=== PATIENT | male | born 1975 | race American Indian/Alaskan Native ===

== ENCOUNTER 2021-03-10 14:51 | Emergency (ER) | payer SELFPAY ==
[2021-03-10 16:41] VITALS: BP 111/84
--- NOTE | 2021-03-10 16:53 | Event Note ---
ED Screening Note Date of service: 03/10/21 Time: 16:52 ED Screening Note: 45-year-old male presents to the ER today with complaints of palpitations. Patient states that since Monday he has been feeling like his heart has been beating fast. Patient states that it occurs intermittently mainly when he exerts himself but when he is resting it improves. He also reports associated generalized weakness. He denies shortness of breath, chest pain, nausea, vomiting, cough, calf pain or lower extremity swelling. Patient states that he has had similar symptoms in the past when he was living in [place]. He states that he got evaluated at the time and he was told that it was likely related to stress/anxiety. He states that he came from [place] 2 months ago. He used to live in [place]. He denies any illicit drug use, alcohol abuse, history of heart disease or any other significant past medical history. This initial assessment/diagnostic orders/clinical plan/treatment(s) is/are subject to change based on patients health status, clinical progression and re- assessment by fellow clinical providers in the ED. Further treatment and workup at subsequent clinical providers discretion. Patient/guardian urged not to elope from the ED as their condition may be serious if not clinically assessed and managed. Initial orders include: Chest pain order set.
--- NOTE | 2021-03-10 17:31 | XRay Report ---
CHEST 1 VIEW 03/10/2021 4:22 PM INDICATION / CLINICAL INFORMATION: Dysrhythmia. Palpitations. COMPARISON: None available. FINDINGS: SUPPORT DEVICES: None. HEART / MEDIASTINUM: The heart size and pulmonary vasculature are normal. The aorta is normal in [place]. LUNGS / PLEURA: No significant pulmonary or pleural abnormality. No pneumothorax. ADDITIONAL FINDINGS: No significant additional findings. IMPRESSION: No acute findings. Signer Name: Anirudh Resendiz MD Signed: 03/10/2021 5:27 PM Workstation Name: [id number]
[2021-03-10 17:35] LABS: Basophils % (Auto) 0.7 % (0.0-1.8); Eosinophils # (Auto) 0.1 K/mm3 (0.0-0.4); Eosinophils % (Auto) 2.2 % (0.0-4.3); Hematocrit 45.3 % (35.5-45.6); Hemoglobin 15.1 gm/dl (11.8-15.2); Lymphocytes # (Auto) 2.6 K/mm3 (1.2-5.4); Mean Corpuscular HGB Conc 33 % (32-34); Mean Corpuscular Volume 86 fl (84-94); Monocytes # (Auto) 0.5 K/mm3 (0.0-0.8); Platelet Count 249 K/mm3 (140-440); Red Cell Distribution Width 12.6 % (13.2-15.2)
[2021-03-10 17:38] LABS: Alanine Aminotransferase 18 units/L (7-56); Albumin 4.9 g/dL (3.9-5); BUN/Creatinine Ratio 10; Blood Urea Nitrogen 9 mg/dL (9-20); Calcium 10.1 mg/dL (8.4-10.2); Hemolysis Index 17
--- NOTE | 2021-03-10 21:23 | Emergency Department Report ---
ED Medical Clearance HPI - General Chief complaint: Arrhythmia/Palpitations Stated complaint: GEN WEAKNESS Source: patient Mode of arrival: Ambulatory - History of Present Illness Initial comments: 45-year-old male presents to the ER today with complaints of palpitations. Patient states that since Monday he has been feeling like his heart has been beating fast. Patient states that it occurs intermittently mainly when he exerts himself but when he is resting it improves. He also reports associated generalized weakness. He denies shortness of breath, chest pain, nausea, vomiting, cough, calf pain or lower extremity swelling. Patient states that he has had similar symptoms in the past when he was living in [place]. He states that he got evaluated at the time and he was told that it was likely related to stress/anxiety. He states that he came from [place] 2 months ago. He used to live in [place]. He denies any illicit drug use, alcohol abuse, history of heart disease or any other significant past medical history. Onset/Timin -: month(s) Associated Symptoms: palpitations (Intermittently) Treatments Prior to Arrival: none Allergies/Adverse reactions: Allergies Allergy/AdvReac Type Severity Reaction Status Date / Time quinine Allergy Itching Verified 03/10/21 16:39 ED Review of Systems ROS: Stated complaint: GEN WEAKNESS Other details as noted in HPI Comment: All other systems reviewed and negative ED Past Medical Hx - Past Medical History Previous Medical History?: No Additional medical history: SPASMPHIBIA - Surgical History Past Surgical History?: No ED Physical Exam - General Limitations: No Limitations General appearance: alert, in no apparent distress - Head Head exam: Present: atraumatic, normocephalic - Eye Eye exam: Present: normal appearance, EOMI - ENT ENT exam: Present: mucous membranes moist, normal external ear exam - Neck Neck exam: Present: normal inspection, full ROM. Absent: lymphadenopathy - Respiratory Respiratory exam: Present: normal lung sounds bilaterally. Absent: respiratory distress, wheezes, chest wall tenderness, accessory muscle use - Cardiovascular Cardiovascular Exam: Present: regular rate, normal rhythm, normal heart sounds - GI/Abdominal GI/Abdominal exam: Present: soft, normal bowel sounds. Absent: distended, tenderness - Extremities Exam Extremities exam: Present: normal inspection. Absent: pedal edema - Back Exam Back exam: Present: normal inspection - Neurological Exam Neurological exam: Present: alert, oriented X3 - Psychiatric Psychiatric exam: Present: normal affect, normal mood - Skin Skin exam: Present: warm, dry, intact, normal color. Absent: rash ED Course Vital Signs 03/10/21 16:40 Temperature 98.9 F Pulse Rate 73 Respiratory 18 Rate Blood Pressure 111/84 O2 Sat by Pulse 100 Oximetry ED Medical Decision Making - Lab Data Result diagrams: 03/10/21 17:01 03/10/21 17:01 - EKG Data EKG shows normal: sinus rhythm Rate: normal - Radiology Data Radiology results: report reviewed Institution [facility] Approval Date 2021-03-10 17:33:20 Other Patient ID My Comment(s) Study Comments [facility] [address] [place] [address] XRay Report Signed Patient: EDILBERTO CARRIZALES MR#: [id number] : 1975 Acct:[id number] Age/Sex: 45 / M ADM Date: 03/10/21 Loc: ED Attending Dr: Ordering Physician: TUYET TEJADA Date of Service: 03/10/21 Procedure(s): XR chest 1V ap Accession Number(s): [id number] cc: TUYET TEJADA Fluoro Time In Minutes: CHEST 1 VIEW 03/10/2021 4:22 PM INDICATION / CLINICAL INFORMATION: Dysrhythmia. Palpitations. COMPARISON: None available. FINDINGS: SUPPORT DEVICES: None. HEART / MEDIASTINUM: The heart size and pulmonary vasculature are normal. The aorta is normal in caliber. LUNGS / PLEURA: No significant pulmonary or pleural abnormality. No pneumothorax. ADDITIONAL FINDINGS: No significant additional findings. IMPRESSION: No acute findings. Signer Name: Anirudh Resendiz MD Signed: 03/10/2021 5:27 PM Workstation Name: [id number] Transcribed By: RT Dictated By: Anirudh Resendiz MD Electronically Authenticated By: Anirudh Resendiz MD Signed Date/Time: 03/10/211726 DD/ 25 TD/TT: - Medical Decision Making 45-year-old male presents to the ER today with complaints of palpitations. Patient states that since Monday he has been feeling like his heart has been beating fast. Patient states that it occurs intermittently mainly when he exerts himself but when he is resting it improves. He also reports associated generalized weakness. He denies shortness of breath, chest pain, nausea, vomiting, cough, calf pain or lower extremity swelling. Patient states that he has had similar symptoms in the past when he was living in [place]. He states that he got evaluated at the time and he was told that it was likely related to stress/anxiety. He states that he came from [place] 2 months ago. He used to live in [place]. He denies any illicit drug use, alcohol abuse, history of heart disease or any other significant past medical history. Patient's labs are nonactionable. EKG shows normal sinus rhythm at heart rate of 67. Discussed with patient that he should follow-up with a children's book author and a primary care provider. ED Disposition Clinical Impression: Palpitations Disposition: DC-01 TO HOME OR SELFCARE Is pt being admited?: No Does the pt Need Aspirin: No Condition: Stable Instructions: Palpitations, [id number] Additional Instructions: Your labs are all normal your EKG is normal and your chest x-ray is normal. I recommend to follow-up with a children's book author and a primary care provider I have listed their information below for your convenience. Referrals: ARIN MCKEON MD [Primary Care Provider] - 3-5 Days [facility] [Provider Group] - 3-5 Days SHANNEN RAMIREZ MD [Staff Physician] - 3-5 Days Time of Disposition: 21:23
--- NOTE | 2021-03-11 11:09 | Electrocardiograph Report ---
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
== END 2021-03-10 21:35 | disposition home or self-care (01) ==
LOC: ED 14:51
DX: R00.2 Palpitations (principal); R53.1 Weakness
CPT/HCPCS: 36415; 71045; 80053; 83735; 84443; 84484; 85025; 93005; 99283